=== PATIENT | female | born 1990 | race Caucasian/White ===

== ENCOUNTER 2017-01-03 15:21 | Emergency (ER) | payer SELFPAY ==
[~2017-01-03] VITALS: Ht 157.5 cm; Wt 58.0 kg
[~2017-01-03 15:21] MED LIST: DARV PO; IBUP-238 PO; Z.0.NO CURRENT MEDS; ZITH250T PO
[2017-01-03 15:23] VITALS: BP 144/89; PULSE 97; RESP 16; TEMP 98; O2SAT 100
[2017-01-03 17:12] VITALS: BP 128/82; PULSE 82; RESP 16; O2SAT 99
[2017-01-03] MEDS ORDERED: KETOROLAC TROMETHAMINE 30 MG/ML (IVP) VIAL IV PUSH ONE (18:30)
[2017-01-03] MEDS ORDERED: SODIUM CHLORIDE 0.9% FLUSH 5 ML FLUSH IVF PRN (18:30)
--- NOTE | 2017-01-03 18:43 | RADRPT ---
EXAM DATE/TIME: 01/03/2017 18:35 [place] COMPARISON: No previous studies available for comparison. INDICATIONS : Chest pain. MEDICAL HISTORY : None. SURGICAL HISTORY : None. ENCOUNTER: Initial ACUITY: 1 day PAIN SCORE: 5/10 LOCATION: Bilateral chest FINDINGS: A single view of the chest demonstrates the lungs to be symmetrically aerated without evidence of mas s, infiltrate or effusion. The cardiomediastinal contours are unremarkable. Osseous structures are intact. CONCLUSION: No evidence of acute cardiopulmonary disease. Natan Guerrero MD on January 03, 2017 at 18:41 Board Certified Radiologist. This report was verified electronically.
[2017-01-03 19:02] LABS: AUTOMATED NEUTROPHIL # 6.8 TH/MM3 (1.8-7.7); BASOPHIL # 0.1 TH/MM3 (0-0.2); BASOPHIL % 0.8 % (0.0-2.0); EOSINOPHIL % 0.4 % (0.0-4.0); HEMATOCRIT 38.1 % (35.0-46.0); HEMO FLAGS DIFF FINAL; LYMPH % 25.4 % (9.0-44.0); LYMPHOCYTE # 2.5 TH/MM3 (1.0-4.8); MEAN CELL VOLUME 83.9 FL (80.0-100.0); MEAN CORPUSCULAR HGB CONC 35.7 % (32.0-36.0); MONO % 4.1 % (0.0-8.0); NEUT % 69.3 % (16.0-70.0); PLATELET COUNT 337 TH/MM3 (150-450); RED BLOOD COUNT 4.53 MIL/MM3 (4.00-5.30); RED CELL DISTRIBUTION WIDTH 13.2 % (11.6-17.2); WHITE BLOOD COUNT 9.8 TH/MM3 (4.0-11.0)
[2017-01-03 19:19] LABS: ANION GAP 10 MEQ/L (5-15); AST (GOT) 9 U/L (15-37); BICARBONATE 24.9 MEQ/L (21.0-32.0); BLOOD UREA NITROGEN 6 MG/DL (7-18); CHLORIDE 105 MEQ/L (98-107); GLOMERULAR FILTRATION RATE 94 ML/MIN (>89); POTASSIUM 3.8 MEQ/L (3.5-5.1); SODIUM (NA) 140 MEQ/L (136-145)
[2017-01-03 19:24] LABS: ALKALINE PHOSPHATASE 70 U/L (45-117); ALT (GPT) 15 U/L (10-53); TOTAL BILIRUBIN ADULT 0.4 MG/DL (0.2-1.0)
[2017-01-03] MEDS ORDERED: IBUP-232 PO (19:31)
--- NOTE | 2017-01-03 19:31 | PD ---
HPI Chief Complaint: Chest Pain Time Seen by Provider: 17:41 Travel History International Travel<30 days: No Contact w/Intl Traveler<30days: No Traveled to known affect area: No History of Present Illness HPI Patient is a 26-year-old female who presents to emergency room with complaints of chest pain. Patient reports that she began to have left sided chest pain while eating breakfast this morning. She reports that the pain felt like a sharp and stabbing sensation, reports that the chest pain has been constant since this morning. Patient denies diaphoresis, nausea or vomiting with symptoms. Patient denies shortness of breath with symptoms. Patient reports that symptoms are nonradiating in nature, reports that nothing makes pain better or worse. Patient reports that she may have had some muscle strain as she did do some yard work the other day. Patient denies history of coronary artery disease, hypertension, hyperlipidemia. Patient denies family history of early coronary disease or ID. Denies any drug abuse. Patient currently not taking any oral contraceptives. Patient with no recent travels or trips. Patient did not take any medications to help with her chest pain. PFSH Past Medical History Diminished Hearing: No Immunizations Current: Yes Seizures: Yes (LAST SEIZURE IN CHILDHOOD) Tetanus Vaccination: > 5 Years Influenza Vaccination: No ?: Not LMP: END OF NOV. : 0 Past Surgical History Surgical History: No Previous Surgery Family History Family History: Negative Family Myocardial Infarction: No Social History Alcohol Use: No Tobacco Use: No Substance Use: No Allergies-Medications (Allergen,Severity, Reaction): Coded Allergies: No Known Allergies (Verified , 01/03/17) Reported Meds & Prescriptions Reported Meds & Active Scripts Active Ibuprofen 600 Mg Tab 600 Mg PO Q6H PRN Review of Systems General / Constitutional: No: Fever Eyes: No: Visual changes HENT: No: Headaches Cardiovascular: Positive: Chest Pain or Discomfort, Palpitations, No: Irregular Rhythm Respiratory: No: Cough, Shortness of Breath Gastrointestinal: No: Nausea, Vomiting, Abdominal Pain Genitourinary: No: Dysuria Musculoskeletal: No: Pain Skin: No Rash Neurologic: No: Weakness Psychiatric: No: Depression Endocrine: No: Polydipsia Hematologic/Lymphatic: No: Easy Bruising Physical Exam Narrative GENERAL: No acute distress, nontoxic SKIN: Warm and dry. HEAD: Atraumatic. Normocephalic. EYES: Pupils equal and round. No scleral icterus. No injection or drainage. ENT: No nasal bleeding or discharge. Mucous membranes pink and moist. NECK: Trachea midline. No JVD. CARDIOVASCULAR: Regular rate and rhythm. No murmur appreciated. RESPIRATORY: No accessory muscle use. Clear to auscultation. Breath sounds equal bilaterally. GASTROINTESTINAL: Abdomen soft, non-tender, nondistended. Hepatic and splenic margins not palpable. MUSCULOSKELETAL: No obvious deformities. No clubbing. No cyanosis. No edema. NEUROLOGICAL: Awake and alert. No obvious cranial nerve deficits. Motor grossly within normal limits. Normal speech. PSYCHIATRIC: Appropriate mood and affect; insight and judgment normal. Data Data Last Documented VS Vital Signs Date Time Temp Pulse Resp B/P Pulse Ox O2 Delivery O2 Flow Rate FiO2 01/03/17 17:12 82 16 128/82 99 Room Air 01/03/17 15:23 98.0 Orders Electrocardiogram (01/03/17 15:52) Ckmb (Isoenzyme) Profile (01/03/17 18:19) Complete Blood Count With Diff (01/03/17 18:19) Comprehensive Metabolic Panel (01/03/17 18:19) D-Dimer (01/03/17 18:19) Troponin I (01/03/17 18:19) Chest, Single Ap (01/03/17 18:19) Ecg Monitoring (01/03/17 18:19) Iv Access Insert/Monitor (01/03/17 18:19) Oximetry (01/03/17 18:19) Sodium Chloride 0.9% Flush (Ns Flush) (01/03/17 18:30) Ketorolac Inj (Toradol Inj) (01/03/17 18:30) Ed Urine Pregnancytest Poc (01/03/17 18:21) Labs Laboratory Tests Test 01/03/17 18:45 White Blood Count 9.8 TH/MM3 Red Blood Count 4.53 MIL/MM3 Hemoglobin 13.6 GM/DL Hematocrit 38.1 % Mean Corpuscular Volume 83.9 FL Mean Corpuscular Hemoglobin 30.0 PG Mean Corpuscular Hemoglobin 35.7 % Concent Red Cell Distribution Width 13.2 % Platelet Count 337 TH/MM3 Mean Platelet Volume 7.4 FL Neutrophils (%) (Auto) 69.3 % Lymphocytes (%) (Auto) 25.4 % Monocytes (%) (Auto) 4.1 % Eosinophils (%) (Auto) 0.4 % Basophils (%) (Auto) 0.8 % Neutrophils # (Auto) 6.8 TH/MM3 Lymphocytes # (Auto) 2.5 TH/MM3 Monocytes # (Auto) 0.4 TH/MM3 Eosinophils # (Auto) 0.0 TH/MM3 Basophils # (Auto) 0.1 TH/MM3 CBC Comment DIFF FINAL Differential Comment D-Dimer Quantitative (PE/DVT) LESS THAN 0.19 MG/L FEU Sodium Level 140 MEQ/L Potassium Level 3.8 MEQ/L Chloride Level 105 MEQ/L Carbon Dioxide Level 24.9 MEQ/L Anion Gap 10 MEQ/L Blood Urea Nitrogen 6 MG/DL Creatinine 0.75 MG/DL Estimat Glomerular Filtration 94 ML/MIN Rate Random Glucose 94 MG/DL Calcium Level 8.6 MG/DL Total Bilirubin 0.4 MG/DL Aspartate Amino Transf 9 U/L (AST/SGOT) Alanine Aminotransferase 15 U/L (ALT/SGPT) Alkaline Phosphatase 70 U/L Total Creatine Kinase 46 U/L Troponin I LESS THAN 0.02 NG/ML Total Protein 7.4 GM/DL Albumin 4.2 GM/DL MDM Medical Decision Making Medical Screen Exam Complete: Yes Emergency Medical Condition: Yes Interpretation(s) EKG at 1552: Normal sinus rhythm at 80 bpm, QT/QTC 372/412, no acute ST or T- wave changes Vital Signs Date Time Temp Pulse Resp B/P Pulse Ox O2 Delivery O2 Flow Rate FiO2 01/03/17 17:12 82 16 128/82 99 Room Air 01/03/17 15:23 98.0 97 16 144/89 100 Laboratory Tests Test 01/03/17 18:45 White Blood Count 9.8 TH/MM3 (4.0-11.0) Red Blood Count 4.53 MIL/MM3 (4.00-5.30) Hemoglobin 13.6 GM/DL (11.6-15.3) Hematocrit 38.1 % (35.0-46.0) Mean Corpuscular Volume 83.9 FL (80.0-100.0) Mean Corpuscular Hemoglobin 30.0 PG (27.0-34.0) Mean Corpuscular Hemoglobin 35.7 % Concent (32.0-36.0) Red Cell Distribution Width 13.2 % (11.6-17.2) Platelet Count 337 TH/MM3 (150-450) Mean Platelet Volume 7.4 FL (7.0-11.0) Neutrophils (%) (Auto) 69.3 % (16.0-70.0) Lymphocytes (%) (Auto) 25.4 % (9.0-44.0) Monocytes (%) (Auto) 4.1 % (0.0-8.0) Eosinophils (%) (Auto) 0.4 % (0.0-4.0) Basophils (%) (Auto) 0.8 % (0.0-2.0) Neutrophils # (Auto) 6.8 TH/MM3 (1.8-7.7) Lymphocytes # (Auto) 2.5 TH/MM3 (1.0-4.8) Monocytes # (Auto) 0.4 TH/MM3 (0-0.9) Eosinophils # (Auto) 0.0 TH/MM3 (0-0.4) Basophils # (Auto) 0.1 TH/MM3 (0-0.2) CBC Comment DIFF FINAL Differential Comment Sodium Level 140 MEQ/L (136-145) Potassium Level 3.8 MEQ/L (3.5-5.1) Chloride Level 105 MEQ/L (98-107) Carbon Dioxide Level 24.9 MEQ/L (21.0-32.0) Anion Gap 10 MEQ/L (5-15) Blood Urea Nitrogen 6 MG/DL (7-18) Creatinine 0.75 MG/DL (0.50-1.00) Estimat Glomerular Filtration 94 ML/MIN (>89) Rate Random Glucose 94 MG/DL (74-106) Calcium Level 8.6 MG/DL (8.5-10.1) Aspartate Amino Transf 9 U/L (15-37) (AST/SGOT) Albumin 4.2 GM/DL (3.4-5.0) Last Impressions Chest X-Ray 01/03/17 6232 Signed Impressions: Service Date/Time: Tuesday, January 03, 2017 18:35 - CONCLUSION: No evidence of acute cardiopulmonary disease. Natan Guerrero MD Differential Diagnosis ACS, PE, electrolyte abnormality, arrhythmia, pneumothorax Narrative Course Patient is a 26-year-old female who presents to emergency room with complaints of chest pain. She describes pain as a sharp and stabbing pain located in her left breast which is nonradiating in nature. Patient with no shortness of breath or diaphoresis with symptoms, reports that symptoms have been constant in nature. Patient with no history of chest pain in the past. EKG obtained upon arrival to emergency room, patient with no acute ST-T wave changes. Patient was placed on a potline monitor. Labs as well as cardiac enzymes ordered to evaluate for atypical reasons for chest pain including possible pericarditis, endocarditis although unlikely as patient denies any recent illnesses. Cardiac enzymes were not ordered to rule out ACS. X-ray chest ordered to evaluate lung pathology. Patient will be given IV Toradol, will continue to monitor patient. Patient reevaluated, patient reports resolution of chest pain after IV Toradol given to her. CBC: WNL BMP: wnl Trop less than 0.02 total ck 46 d dimer <0.19 Patient with normal EKG, patient with atypical chest pain, currently cp free at this time. Plan to discharge patient with outpatient follow-up with her primary care doctor Diagnosis Primary Impression: Chest pain Qualified Code: R07.9 - Chest pain, unspecified type Patient Instructions: General Instructions Additional Instructions: Please follow-up with your primary care doctor as soon as possible Return to emergency room if symptoms return Return to emergency room as needed Med/Other Pt SpecificInfo: Prescription(s) given Scripts Ibuprofen 600 Mg [id number] Mg PO Q6H PRN (Pain/Inflammation) #40 TAB Ref 0 Prov:Thuy Herbert DO 01/03/17 Disposition: 01 DISCHARGE HOME Condition: Stable Thuy Herbert DO Jan 03, 2017 19:31
[2017-01-03 19:36] LABS: CREATINE KINASE 46 U/L (26-192)
[2017-01-03 20:13] VITALS: BP 102/67; O2SAT 99
--- NOTE | 2017-01-04 18:44 | EKG ---
Date Performed: 01/03/2017 Time Performed: 15:52:34 PTAGE: 26 years EKG: Sinus rhythm NORMAL ECG PREVIOUS TRACING : 01/03/2017 15.51 DOCTOR: Yaniv Yañez Interpretating Date/Time 01/04/2017 18:39:21
== END 2017-01-03 20:40 | disposition home or self-care (01) ==
LOC: NEPA 15:21
DX: R07.9 Chest pain, unspecified (principal); R00.2 Palpitations
CPT/HCPCS: 71010; 80053; 82550; 84484; 84703; 85025; 85379; 93005; 96374; 99285; J1885